=== PATIENT | male | born 1970 | race American Indian/Alaskan Native ===

== ENCOUNTER 2016-06-12 20:36 | Emergency (ER) | payer OTHER ==
[2016-06-12] MEDS ORDERED: fentaNYL DRIP Premix 100 ML IV ONE (20:48)
[2016-06-12] MEDS ORDERED: VERSED IV ONE (20:49)
[2016-06-12] MEDS ORDERED: SUBLIMAZE ONE (20:49)
[2016-06-12] MEDS ORDERED: CATAPRES ONE (21:04)
[2016-06-12] MEDS ORDERED: CATAPRES PO ONE (21:09)
[2016-06-13] MEDS ORDERED: KEFLEX PO ONE (01:25)
[2016-06-13] MEDS ORDERED: NORCO 5/325 PO ONE (01:25)
[2016-06-13] MEDS ORDERED: TRIPLE ANTIBIOTIC TP ONE ×2 (01:25→01:38)
[2016-06-13] MEDS ORDERED: XYLOCAINE 2%/EPI 1:100,000 INFILTRATI ONE (01:25)
--- NOTE | 2016-06-13 01:35 | Emergency Department Report ---
Upper Extremity - [facility] Chief Complaint: Extremity Injury, Upper Stated Complaint: RT ARM/LEFT HAND LACERTION Time Seen by Provider: 06/13/16 01:24 Upper Extremity: Right Forearm (3 cm horizontal laceration right forearm), Right Index Finger (small V-shaped laceration left pinky finger) Occurred When: Today Severity: Unable to Determine Symptoms: Yes Pain with Movement, Yes Laceration or Abrasion, No Deformity, No Limited Range of Movement, No Numbness, No Weakness, No Swelling, No Bruising/ Ecchymosis Other History: 46-year-old male presents with complaint of laceration to left index finger and right forearm. Patient states he was fixing windowpane and arms went through windowpane as he was pushing on it. Patient has gauze wrapped right forearm as well as left index finger. Patient unaware of tetanus status ED Review of Systems ROS: Stated complaint: RT ARM/LEFT HAND LACERTION Other details as noted in HPI ED Past Medical Hx - Past Medical History Previous Medical History?: Yes Hx Hypertension: Yes Hx Diabetes: Yes - Surgical History Past Surgical History?: Yes Hx Appendectomy: Yes - Social History Smoking Status: Light Tobacco Smoker Substance Use Type: Alcohol - Medications Home Medications: Home Medications Medication Instructions Recorded Confirmed Last Taken Type Lisinopril [Zestril] 20 mg PO QDAY 05/20/15 05/20/15 05/18/15 History Lisinopril [Zestril TAB] 20 mg PO QDAY #30 tablet 05/21/15 Unknown Rx traMADol [Ultram 50 MG tab] 50 - 100 mg PO Q8HR PRN #30 tablet 05/21/15 Unknown Rx Cephalexin [Keflex] 500 mg PO BID #14 capsule 06/13/16 Unknown Rx Ibuprofen [Motrin] 600 mg PO Q8H PRN #30 tablet 06/13/16 Unknown Rx Neomy/Baci/Polymyx Oint [Triple 15 gm TP TID #1 oint 06/13/16 Unknown Rx Antibiotic] Upper Extremity Exam - Exam General: Vital signs noted. No distress. Alert and acting appropriately. ED Course Vital Signs 06/12/16 06/12/16 20:50 21:11 Temperature 98.1 F Pulse Rate 126 H 126 H Respiratory 20 Rate Blood Pressure 184/126 184/126 O2 Sat by Pulse 99 Oximetry - Laceration /Wound Repair Right Arm Wound Length (cm): 4 Wound's Depth, Shape: superficial, linear Wound Explored: clean Betadine Prep?: Yes Anesthesia: Lidocaine w/ Epi Volume Anesthetic (ccs): 8 Wound Debrided: minimal Wound Repaired With: sutures Suture Size/Type: 3:0, proline Number of Sutures: 10 Layer Closure?: Yes Deep Layer Suture Size/Type: 3:0, chromic Number Deep Layer Sutures: 3 Sterile Dressing Applied?: Yes Progress: Procedure tolerated well, good closure, minimal bleeding, minimal pain. 10 sutures placed Left Volar Finger Wound Location: upper extremity Wound Length (cm): 1 Wound's Depth, Shape: superficial, irregular (V-shaped laceration between PIP and DIP left pinky finger) Wound Explored: clean Irrigated w/ Saline (ccs): 1,000 Betadine Prep?: Yes Anesthesia: 1% Lidocaine Wound Debrided: minimal Wound Repaired With: sutures Suture Size/Type: 5:0, nylon Number of Sutures: 3 Sterile Dressing Applied?: Yes (triple antibiotic, with gauze over, finger placed in splint) Progress: Procedure tolerated well, minimal bleeding ED Medical Decision Making - Medical Decision Making A/P: Right forearm laceration, left pinky laceration 1-no foreign bodies on direct inspection and probing of wounds. I flushed both areas thoroughly with over 2000 mL of normal saline 2-sutures to be removed in ~10 days 3-tetanus updated today 4-Motrin 600 when necessary for pain, Keflex 500 mg twice a day 7 days 5- triple antibiotic ointment to area. I advised patient to follow-up in~10 days for suture removal. I advised patient to return to ED as soon as possible if he develops any erythema, pus drainage, bleeding, wound dehiscence. Patient understood these instructions 6- patient is hypertensive but asymptomatic, no headache and no chest pain no blurry vision or nausea no vomiting. Blood pressure decreased before discharge , checked by nurse BP 143/102 Critical care attestation.: If time is entered above; I have spent that time in minutes in the direct care of this critically ill patient, excluding procedure time. ED Disposition Clinical Impression: Laceration of left little finger Laceration of forearm, right Qualifiers: Encounter type: initial encounter Qualified Code(s): S51.811A - Laceration without foreign body of right forearm, initial encounter Disposition: DISCHARGED TO HOME OR SELFCARE Is pt being admited?: No Does the pt Need Aspirin: No Condition: Stable Instructions: Suture Care (ED), Laceration (ED), Soft Tissue Foreign Body (ED) , Finger Laceration (ED) Additional Instructions: Patient advised to follow-up in urgent care or ED in approximately 10 days for suture removal Prescriptions: Cephalexin [Keflex] 500 mg PO BID #14 capsule Ibuprofen [Motrin] 600 mg PO Q8H PRN #30 tablet PRN Reason: Pain Neomy/Baci/Polymyx Oint [Triple Antibiotic] 15 gm TP TID #1 oint Referrals: PRIMARY CARE, [Primary Care Provider] - 3-5 Days [facility] [Outside] - 3-5 Days Forms: Accompanied Note, Work/School Release Form(ED) Time of Disposition: 03:03
[2016-06-13] MEDS ORDERED: BOOSTRIX IM ONE (01:40)
[2016-06-13] MEDS: TENIVAC IM ONE ×2 (01:53→01:55)
[2016-06-13 03:12] VITALS: BP 143/102
--- NOTE | 2016-06-13 09:22 | XRay Report ---
LEFT HAND THREE VIEWS: 06/12/16 21:08:00 CLINICAL: Trauma and laceration. FINDINGS: Normal bones and joints of the hand. A bandage on the fifth finger. The soft tissues of the hand are normal except for a tiny opacity at the dorsum of the wrist which may be a tiny bone fragment or foreign body. IMPRESSION: Possible bone fragment or tiny foreign body at the wrist.
--- NOTE | 2016-06-13 09:23 | XRay Report ---
LEFT FOREARM TWO VIEWS : 06/12/16 20:36:00 CLINICAL: Laceration. FINDINGS: No fracture or dislocation. Mild degenerative change at the elbow. Normal soft tissues. IMPRESSION: Mild degenerative change no apparent traumatic injury.
== END 2016-06-13 03:15 | disposition home or self-care (01) ==
LOC: ED 20:36
DX: S61.217A Laceration without foreign body of left little finger without damage to nail, initial encounter (principal); S51.811A Laceration without foreign body of right forearm, initial encounter; I10 Essential (primary) hypertension; E11.9 Type 2 diabetes mellitus without complications; Z90.49 Acquired absence of other specified parts of digestive tract; W45.8XXA Other foreign body or object entering through skin, initial encounter; Y93.89 Activity, other specified; Y99.8 Other external cause status; Y92.89 Other specified places as the place of occurrence of the external cause
CPT/HCPCS: 90714; 90715; A6250; J2250; J3010

== ENCOUNTER 2016-06-21 18:00 | Emergency (ER) | payer OTHER ==
[2016-06-21 18:07] VITALS: BP 145/104
== END 2016-06-21 18:44 | disposition left against medical advice (07) ==
LOC: ED 18:00
DX: Z48.02 Encounter for removal of sutures (principal); Z53.21 Procedure and treatment not carried out due to patient leaving prior to being seen by health care provider

== ENCOUNTER 2016-06-22 18:39 | Emergency (ER) | payer OTHER ==
--- NOTE | 2016-06-22 19:57 | Emergency Department Report ---
Suture/Staple Removal - [facility] Chief Complaint: Laceration/Recheck/Suture Stated Complaint: SUTURE REMOVAL Time Seen by Provider: 06/22/16 19:43 When Sutures or Priti Placed: 8-10 Days Ago Wound Location: right forearm and left pinky finger ED Review of Systems ROS: Stated complaint: SUTURE REMOVAL Other details as noted in HPI Constitutional: denies: chills, fever Eyes: denies: eye pain, eye discharge, vision change ENT: denies: ear pain, throat pain Respiratory: denies: cough, shortness of breath, wheezing Cardiovascular: denies: chest pain, palpitations Endocrine: no symptoms reported Gastrointestinal: denies: abdominal pain, nausea, diarrhea Genitourinary: denies: urgency, dysuria Musculoskeletal: denies: back pain, joint swelling, arthralgia Skin: denies: rash, lesions Neurological: denies: headache, weakness, paresthesias Psychiatric: denies: anxiety, depression Hematological/Lymphatic: denies: easy bleeding, easy bruising ED Past Medical Hx - Past Medical History Hx Hypertension: Yes Hx Diabetes: Yes - Surgical History Hx Appendectomy: Yes - Social History Smoking Status: Never Smoker Substance Use Type: Alcohol - Medications Home Medications: Home Medications Medication Instructions Recorded Confirmed Last Taken Type Lisinopril [Zestril] 20 mg PO QDAY 05/20/15 05/20/15 05/18/15 History Lisinopril [Zestril TAB] 20 mg PO QDAY #30 tablet 05/21/15 Unknown Rx traMADol [Ultram 50 MG tab] 50 - 100 mg PO Q8HR PRN #30 tablet 05/21/15 Unknown Rx Cephalexin [Keflex] 500 mg PO BID #14 capsule 06/13/16 Unknown Rx Ibuprofen [Motrin] 600 mg PO Q8H PRN #30 tablet 06/13/16 Unknown Rx Neomy/Baci/Polymyx Oint [Triple 15 gm TP TID #1 oint 06/13/16 Unknown Rx Antibiotic] Suture Removal Exam - Exam General: Vital signs noted. No distress. Alert and acting appropriately. Wound: No Pathologic Erythema, No Tenderness, No Drainage, No Pus, No Wound Dehiscence Other Systems: All other systems reviewed and are unremarkable. ED Course Vital Signs 06/22/16 18:59 Temperature 97.8 F Pulse Rate 73 Respiratory 17 Rate Blood Pressure 142/98 O2 Sat by Pulse 98 Oximetry ED Recheck MDM - Differential Diagnosis Suture/Staple Removal - Medical Decision Making A/P: Removal 1-9 sutures removed from right forearm, 3 from left pinky finger. No wound dehiscence, wound does not look infected. Appears to have healed well 2-denies patient to apply triple antibiotic ointment for a few more days and to keep a close eye on the wound site for any pus drainage or redness. No signs of cellulitis or abscesses currently. Range of motion right forearm and left pinky finger fully intact, distal capillary refill both extremities fully intact. Patient denies any paresthesias no signs of neurovascular compromise 3-patient can cover area with gauze or band aids Critical care attestation.: If time is entered above; I have spent that time in minutes in the direct care of this critically ill patient, excluding procedure time. ED Disposition Clinical Impression: Visit for suture removal Disposition: DISCHARGED TO HOME OR SELFCARE Is pt being admited?: No Does the pt Need Aspirin: No Condition: Stable Instructions: Suture Removal (ED) Referrals: PRIMARY CAREMD [Primary Care Provider] - 3-5 Days Time of Disposition: 19:57
[2016-06-22 20:41] VITALS: BP 139/68
== END 2016-06-22 20:41 | disposition home or self-care (01) ==
LOC: ED 18:39
DX: S61.217D Laceration without foreign body of left little finger without damage to nail, subsequent encounter (principal); I10 Essential (primary) hypertension; E11.9 Type 2 diabetes mellitus without complications